=== PATIENT | female | born 1980 | race Caucasian/White ===

== ENCOUNTER 2017-01-31 18:17 | Emergency (ER) | payer OTHER ==
[~2017-01-31] VITALS: Ht 157.5 cm; Wt 73.1 kg
[~2017-01-31 18:17] MED LIST: CEFD300C2 PO; DOCO200C3 PO; HYDR-3138 PO
[2017-01-31 18:32] VITALS: BP 131/81
[2017-01-31] MEDS ORDERED: IBUPROFEN 200 MG TABLET ONE (19:45)
[2017-01-31] MEDS ORDERED: IBUPROFEN 200 MG TABLET PO ONE (20:00)
== END 2017-01-31 21:42 | disposition home or self-care (01) ==
LOC: ED 21:06 → MERGE 21:06 → ED 21:42
DX: S16.1XXA Strain of muscle, fascia and tendon at neck level, initial encounter (principal); V89.2XXA Person injured in unspecified motor-vehicle accident, traffic, initial encounter; Y93.89 Activity, other specified; Y92.410 Unspecified street and highway as the place of occurrence of the external cause; Y99.8 Other external cause status
CPT/HCPCS: 72050; 99284

== ENCOUNTER → 2017-03-03 | Outpatient (CLI) | payer MEDICAID | END | disposition home or self-care (01) | LOC: CFH 13:38 | PROVIDERS: ATTEND Family Medicine | DX: R51 Headache (principal) | CPT/HCPCS: 70450 ==

== ENCOUNTER 2017-10-17 08:36 | Emergency (ER) | payer MEDICAID ==
[~2017-10-17] VITALS: Ht 157.5 cm; Wt 70.5 kg
[~2017-10-17 08:36] MED LIST changes: -CEFD300C2 PO; +CEFD300C37 PO; -HYDR-3138 PO; +HYDR-3237 PO
[2017-10-17 09:13] LABS: HEMATOCRIT 43.6 % (34.6-47.8); HEMOGLOBIN 14.9 g/dL (11.7-16.4); WHITE BLOOD COUNT 6.7 x10^3/uL (3.4-10)
[2017-10-17 09:18] LABS: PATH.CAST-FLAG NOT PRESENT; SPERM-FLAG NOT PRESENT; SRC-FLAG NOT PRESENT; XTAL-FLAG NOT PRESENT; YLC-FLAG NOT PRESENT
[2017-10-17 09:25] LABS: BLOOD UREA NITROGEN 11 mg/dL (7-18)
[2017-10-17] MEDS ORDERED: CEFTRIAXONE 1,000 MG ONE (09:38)
[2017-10-17] MEDS ORDERED: CEFTRIAXONE 1,000 MG IM ONE (10:00)
[2017-10-17 10:44] VITALS: BP 122/75
== END 2017-10-17 12:43 | disposition home or self-care (01) ==
LOC: ED 09:49
DX: N20.1 Calculus of ureter (principal); N39.0 Urinary tract infection, site not specified; N10 Acute pyelonephritis
CPT/HCPCS: 36415; 74000; 76770; 80048; 81001; 82040; 84703; 85025; 87077; 87086; 87186; 96372; 99285; J0696

== ENCOUNTER → 2018-06-11 | Outpatient (CLI) | payer BC, MEDICAID | LOC: CFH 08:29 | PROVIDERS: ATTEND Obstetrics & Gynecology | DX: Z02.9 Encounter for administrative examinations, unspecified (principal) ==

== ENCOUNTER → 2018-07-30 | Outpatient (CLI) | payer BC, MEDICAID ==
[~2018-07-30] MED LIST changes: +None at this Time
[2018-07-30 09:38] LABS: MICROSCOPIC INDICATED
[2018-07-30 09:39] LABS: CULTURE INDICATED? YES
[2018-07-30 09:39] LABS: BASOPHILS # (AUTO) 0.04 x10^3/uL (0-0.1); BASOPHILS % (AUTO) 1 % (0-1); EOSINOPHILS # (AUTO) 0.05 x10^3/uL (0-0.4); EOSINOPHILS % (AUTO) 1 % (1-7); LYMPHOCYTES # (AUTO) 2.39 x10^3/uL (1-3.4); LYMPHOCYTES % (AUTO) 30 % (22-44); MD NO; MEAN CORPUSCULAR HEMOGLOBIN 29.1 pg (27.0-34.8); MEAN CORPUSCULAR HGB CONC 34.5 g/dL (32.4-35.8); MEAN CORPUSCULAR VOLUME 84.4 fL (80-100); MEAN PLATELET VOLUME 8.1 fL (7.4-10.4); MONOCYTES # (AUTO) 0.52 x10^3/uL (0.2-0.8); MONOCYTES % (AUTO) 6 % (2-9); NEUTROPHILS # (AUTO) 5.11 x10^3/uL (1.8-6.8); NEUTROPHILS % (AUTO) 63 % (42-75); PLATELET COUNT 288 x10^3/uL (130-400); RED BLOOD COUNT 5.17 x10^6/uL (3.82-5.3); RED CELL DISTRIBUTION WIDTH 13.2 % (9.6-15.2)
== END | disposition home or self-care (01) ==
LOC: STAR 08:18
PROVIDERS: ATTEND Obstetrics & Gynecology
DX: Z01.818 Encounter for other preprocedural examination (principal); R10.2 Pelvic and perineal pain; Z87.891 Personal history of nicotine dependence
CPT/HCPCS: 36415; 81001; 85025; 87077; 87086; 87186

== ENCOUNTER 2018-08-05 10:40 | Day surgery (SDC) | payer BC, MEDICAID ==
[2018-07-30 09:31] VITALS: BP 100/67
[~2018-08-05] VITALS: Ht 157.5 cm; Wt 67.2 kg
[2018-08-05] MEDS ORDERED: BUPIVACAINE/PF-EPI 0.25% 1:200K ONE (11:13)
[2018-08-05] MEDS ORDERED: THROMBIN 5,000 UNIT VIAL TP ONE (11:13)
[2018-08-05] MEDS ORDERED: NEOMY/POLYMYXIN B GU IRR. 1 ML IRRIG ONE (11:13)
[2018-08-05] MEDS ORDERED: LACTATED RINGERS 1,000 ML IV SCH (11:15)
[2018-08-05] MEDS ORDERED: PROPOFOL 10 MG/ML, 20ML ONE (11:41)
[2018-08-05] MEDS ORDERED: METOCLOPRAMIDE 5 MG/ML, 2ML ONE (11:41)
[2018-08-05] MEDS ORDERED: DEXAMETHASONE 4 MG/ML, 1ML ONE (11:41)
[2018-08-05] MEDS ORDERED: ONDANSETRON 2MG/ML, 2ML ONE (11:41)
[2018-08-05] MEDS ORDERED: LIDOCAINE-MPF 2% ,5ML ONE (11:41)
[2018-08-05] MEDS ORDERED: FENTANYL PF 100 MCG/2ML ONE (11:42)
[2018-08-05] MEDS ORDERED: MIDAZOLAM 1 MG/ML, 2ML ONE (11:42)
[2018-08-05] MEDS ORDERED: GENTAMICIN 80 MG/2 ML ONE (11:59)
[2018-08-05 12:06] LABS: HCG UR SG 1.021 (1.003-1.030)
[2018-08-05] MEDS ORDERED: MEPERIDINE/PF 25MG/0.5ML IVPush PRN (12:30)
[2018-08-05] MEDS ORDERED: FENTANYL PF 100 MCG/2ML IV PRN (12:30)
[2018-08-05] MEDS ORDERED: MIDAZOLAM 1 MG/ML, 2ML IV PRN (12:30)
[2018-08-05] MEDS ORDERED: ONDANSETRON 2MG/ML, 2ML IVPush PRN (12:30)
[2018-08-05] MEDS ORDERED: LABETALOL 5MG/ML, 20ML IV PRN (12:30)
[2018-08-05] MEDS ORDERED: HYDROmorphone 1 MG/ML, 1ML IV PRN (12:30)
[2018-08-05] MEDS ORDERED: OXYcodone 5 MG/5 ML ORAL.SOL UDC PO PRN (12:30)
== END 2018-08-05 15:10 | disposition home or self-care (01) ==
LOC: OUT 10:40
PROVIDERS: ATTEND Obstetrics & Gynecology
DX: N76.5 Ulceration of vagina (principal); N94.10 Unspecified dyspareunia; N93.0 Postcoital and contact bleeding; N76.0 Acute vaginitis; Z87.440 Personal history of urinary (tract) infections
CPT/HCPCS: 36415; 57415; 81025; 86850; 86870; 86900; 86902; 86922; 88305; 88312; J1100; J1580; J2250; J2405; J2704; J2765; J3010; J3490; J7120; 86923

== ENCOUNTER 2019-06-25 20:42 | Emergency (ER) | payer MEDICAID ==
[~2019-06-25] VITALS: Ht 157.5 cm; Wt 66.5 kg
[2019-06-25 22:32] VITALS: BP 116/67
== END 2019-06-25 23:28 | disposition home or self-care (01) ==
LOC: ED 22:29
DX: N39.0 Urinary tract infection, site not specified (principal); F17.200 Nicotine dependence, unspecified, uncomplicated
CPT/HCPCS: 36415; 76770; 80053; 81001; 84703; 85025; 87077; 87086; 87186; 96372; 99284; J1885; Q0162

== ENCOUNTER 2020-01-13 17:22 | Emergency (ER) | payer MEDICAID ==
[~2020-01-13] VITALS: Ht 157.5 cm; Wt 69.2 kg
--- NOTE | 2020-01-13 17:42 | NUR ---
PT C/O RUQ, R FLANK AND LOW ABDOMINAL TENDERNESS. PT DENIES ANY URINARY SYMTOMS. DENIES . DENIES HX OF ABDOMINAL SURGERIES. PT ALSO C/O BILATERAL EAR PAIN, NECK PAIN, THROAT PAIN. PT'S CHILDREN DX WITH FLU X2 WEEKS AGO, PT BELIEVES SHE ALSO HAD FLU. COUGH X1 WEEK. NONE NOTED IN ED.
[2020-01-13] MEDS ORDERED: SODIUM CHLORIDE 0.9% 1,000ML IVBOLUS ONE (18:00)
[2020-01-13] MEDS ORDERED: ONDANSETRON 2MG/ML, 2ML IVPush ONE (18:00)
[2020-01-13] MEDS ORDERED: ONDANSETRON 2MG/ML, 2ML ONE (18:14)
[2020-01-13] MEDS ORDERED: MORPHINE SULFATE 4 MG/ML, 1ML ONE ×2 (18:15→20:09)
[2020-01-13 18:16] LABS: BASOPHILS # (AUTO) 0.02 x10^3/uL (0-0.1); BASOPHILS % (AUTO) 0 % (0-1); EOSINOPHILS # (AUTO) 0.12 x10^3/uL (0-0.4); EOSINOPHILS % (AUTO) 1 % (1-7); LYMPHOCYTES # (AUTO) 1.51 x10^3/uL (1-3.4); LYMPHOCYTES % (AUTO) 13 % (22-44); MD NO; MEAN CORPUSCULAR HEMOGLOBIN 29.8 pg (27.0-34.8); MEAN CORPUSCULAR HGB CONC 34.5 g/dL (32.4-35.8); MEAN CORPUSCULAR VOLUME 86.3 fL (80-100); MEAN PLATELET VOLUME 7.7 fL (7.4-10.4); MONOCYTES # (AUTO) 0.79 x10^3/uL (0.2-0.8); MONOCYTES % (AUTO) 7 % (2-9); NEUTROPHILS # (AUTO) 9.35 x10^3/uL (1.8-6.8); NEUTROPHILS % (AUTO) 79 % (42-75); PLATELET COUNT 236 x10^3/uL (130-400); RED BLOOD COUNT 5.01 x10^6/uL (3.82-5.3); RED CELL DISTRIBUTION WIDTH 12.8 % (9.6-15.2)
[2020-01-13] MEDS: MORPHINE SULFATE 4 MG/ML, 1ML IVPush PRN ×2 (18:17→20:11)
--- NOTE | 2020-01-13 18:20 | NUR ---
PT REMINDED OF NEED FOR UA. IV NS INFUSING. PARTER AT BEDSIDE. BLANKETS APPLIED. SIDE RAILS UP, CALL LIGHT IN REACH.
[2020-01-13 18:26] LABS: ALANINE AMINOTRANSFERASE 20 U/L (12-78); ALBUMIN 3.9 g/dL (3.4-5.0); ANION GAP 6 mmol/L (5-15); CALCIUM 8.9 mg/dL (8.5-10.1); CHLORIDE 108 mmol/L (98-107); CREATININE 0.88 mg/dL (0.55-1.02)
[2020-01-13 18:31] LABS: ALKALINE PHOSPHATASE 88 U/L (45-117); BILIRUBIN,TOTAL 0.7 mg/dL (0.2-1.0); TOTAL PROTEIN 7.7 g/dL (6.4-8.2)
--- NOTE | 2020-01-13 19:01 | NUR ---
PT UP TO BATHROOM FOR UA.
--- NOTE | 2020-01-13 20:07 | NUR ---
Lab called for an update on urine processing. Per Francheska, lab will begin processing now.
[2020-01-13 20:15] LABS: CULTURE INDICATED? YES; MICROSCOPIC INDICATED
--- NOTE | 2020-01-13 20:41 | NUR ---
PT MEDICATED PER EMAR. AWAITING RECHECK. PT LAYING BACK IN BED, AT BEDSIDE. TELEVISION ON. SIDE RAIL UP, CALL LIGHT IN REACH.
[2020-01-13] MEDS ORDERED: KETOROLAC 30 MG/1 ML IVPush ONE (21:00)
--- NOTE | 2020-01-13 21:24 | NUR ---
3/10 PAIN FOLLOWING PAIN MEDICATIONS.
[2020-01-13 21:44] VITALS: BP 100/52
== END 2020-01-13 21:49 | disposition home or self-care (01) ==
LOC: ED 20:18
DX: J02.0 Streptococcal pharyngitis (principal)
CPT/HCPCS: 36415; 74176; 80053; 81001; 83605; 83690; 84703; 85025; 87040; 87086; 87186; 96374; 96375; 96376; 99284; J1885; J2270; J2405; J7030